=== PATIENT | female | born 1995 | race African-American/Black ===

== ENCOUNTER 2022-05-12 10:32 | Emergency (ER) | payer OTHER ==
[~2022-05-12] VITALS: Ht 152.4 cm; Wt 174.6 kg
[2022-05-12 10:37] VITALS: BP 169/82
--- NOTE | 2022-05-12 10:45 | NUR ---
SUJEY. HANDED ON URINE CUP.
--- NOTE | 2022-05-12 11:42 | NUR ---
Patient ambulated to bed 5.
--- NOTE | 2022-05-12 12:09 | NUR ---
Lab at bedside.
--- NOTE | 2022-05-12 12:17 | NUR ---
Dr. Fairchild evaluating patient at bedside.
[2022-05-12 12:30] LABS: BASOPHILS # (AUTO) 0.2 K/uL (0.00-0.22); BASOPHILS % (AUTO) 1.4 % (0.0-2.0); EOSINOPHILS # (AUTO) 0.2 K/uL (0-0.4); EOSINOPHILS % (AUTO) 1.2 % (0.0-4.0); HEMATOCRIT 40.2 % (36-48); HEMOGLOBIN 13.2 g/dL (12.0-16.0); LYMPHOCYTES # (AUTO) 3.9 K/uL (2.5-16.5); LYMPHOCYTES % (AUTO) 25.6 % (20.5-51.1); MEAN CORPUSCULAR HEMOGLOBIN 29 pg (27-31); MEAN CORPUSCULAR HGB CONC 33 g/dL (33-37); MEAN CORPUSCULAR VOLUME 87.2 fL (80-94); MONOCYTES # (AUTO) 0.9 K/uL (0.8-1.0); MONOCYTES % (AUTO) 5.7 % (1.7-9.3); NEUTROPHILS % (AUTO) 66.1 % (42.2-75.2); PLATELET COUNT (AUTO) 249 K/uL (140-450); RED BLOOD CELL COUNT(AUTO) 4.61 MIL/uL (4.20-5.40); RED CELL DISTRIBUTION WIDTH 14.2 % (11.6-13.7); WHITE BLOOD COUNT (AUTO) 15.1 K/uL (4.8-10.8)
[2022-05-12 12:38] LABS: APPEARANCE,URINE HAZY (CLEAR); BILIRUBIN,URINE NEGATIVE (NEGATIVE); BLOOD, URINE 2+ (NEGATIVE); COLOR,URINE YELLOW (YELLOW); LEUKOCYTE ESTERASE ,URINE NEGATIVE (NEGATIVE); NITRITE, URINE NEGATIVE (NEGATIVE); UGLUCOSE NEGATIVE (NEGATIVE)
--- NOTE | 2022-05-12 12:43 | NUR ---
Ultrasound at bedside.
[2022-05-12 12:46] LABS: ALBUMIN 3.4 g/dL (3.4-5.0); ANION GAP 14.3 (8-16); CARBON DIOXIDE 27.4 mmol/L (21-32); CREATININE 0.9 mg/dL (0.6-1.3); POTASSIUM 3.7 mmol/L (3.5-5.1); TOTAL BILIRUBIN 0.3 mg/dL (0.0-1.0)
[2022-05-12 12:54] LABS: RBC,URINE NONE SEEN /HPF (0-5)
[2022-05-12] MEDS ORDERED: ACET-10509 PO (14:07)
[2022-05-12 15:19] VITALS: BP 164/96
--- NOTE | 2022-05-12 15:19 | NUR ---
Patient discharged with v/s stable. Written and verbal after care instructions given. Patient alert, oriented and verbalized understanding of instructions. Ambulatory with steady gait. All questions addressed prior to discharge. ID band removed. Patient advised to follow up with PMD. Rx of Tylenol given. Opportunity to ask questions provided and answered.
--- NOTE | 2022-05-12 15:20 | NUR ---
Chart checked and completed. The patient's care was reviewed and supervised by Donna Patricio RN.
== END 2022-05-12 15:19 | disposition home or self-care (01) ==
LOC: MED 10:32
DX: N93.8 Other specified abnormal uterine and vaginal bleeding (principal)
CPT/HCPCS: 36415; 76856; 80053; 81001; 81025; 83690; 85025; 87086; 93976; 99284; Q0092